=== PATIENT | male | born 2000 | race Caucasian/White ===

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

== ENCOUNTER 2019-06-15 18:51 | Emergency (ER) | payer BC, OTHER ==
--- NOTE | 2019-06-15 19:26 | UC ---
Lower Extremity/Ankle HPI - HPI Summary HPI Summary: 18 yo male presents with RIGHT calf pain. He tells me that 2 days ago he fell asleep at a computer desk with his right lower extremity in a weird position. He woke up several hours later and noticed some numbness/tingling to his entire right leg that improved with moving around and time. Also had some right calf pain that has continued since 2 days ago, but has improved. He played football yesterday and noticed that it felt better with activity. He is concerned about a DVT. Has not taken anything OTC for his discomfort. Denies numbness, tingling. He does not smoke. No hx of blood clots, recent travel, or cancer. - History of Current Complaint Stated Complaint: LEG PAIN Time Seen by Provider: 06/15/19 19:26 Hx Obtained From: Patient Onset/Duration: Sudden Onset Severity Initially: Moderate Severity Currently: Mild Pain Intensity: 2 Pain Scale Used: 0-10 Numeric - Allergies/Home Medications Allergies/Adverse Reactions: Allergies Allergy/AdvReac Type Severity Reaction Status Date / Time No Known Allergies Allergy Verified 06/15/19 19:22 Home Medications: Home Medications Finasteride 0.5 mg PO DAILY WITH MEAL 06/15/19 [History Confirmed 06/15/19] PMH/Surg Hx/FS Hx/Imm Hx - Additional Past Medical History Additional PMH: Hair loss - Surgical History Surgical History: None - Family History Known Family History: Positive: None - Pt denies FMHX - Social History Occupation: Student Lives: Dormitory/Roommates Alcohol Use: None Substance Use Type: None Smoking Status (MU): Never Smoked Tobacco - Immunization History Vaccination Up to Date: Yes Review of Systems All Other Systems Reviewed And Are Negative: No Constitutional: Positive: Negative Skin: Positive: Negative Respiratory: Positive: Negative Cardiovascular: Positive: Negative Neurovascular: Positive: Negative Musculoskeletal: Positive: Other: - Right calf pain Neurological: Positive: Negative Psychological: Positive: Negative Physical Exam - Summary Physical Exam Summary: GENERAL: NAD. WDWN. No pain distress. SKIN: No rashes, sores, lesions, or open wounds. CHEST: No accessory muscle use. Breathing comfortably and in no distress. CV: Pulses intact PT and DP. Cap refill <2seconds. No palpable cord in right calf MSK: RIGHT CALF: Mild TTP about entire calf. NTTP knee or ankle. Negative ryan sign. Soft. No edema. Negative greenberg test. NEURO: Alert. Sensations intact and symmetric B/L LEs PSYCH: Age appropriate behavior. Triage Information Reviewed: Yes Vital Signs: Vital Signs: Temp Pulse Resp BP Pulse Ox 98.6 F 72 16 125/74 99 06/15/19 19:25 06/15/19 19:25 06/15/19 19:25 06/15/19 19:25 06/15/19 19:25 Vital Signs Reviewed: Yes Lower Extremity Course/Dx - Course Course Of Treatment: Well's score for DVT is 0. Discussed with pt that he has no risk factors for DVT and his symptoms are improving. Suspect calf strain. Encouraged to go to the ED if his symptoms do not improve or if he develops calf swelling/redness, shortness of breath, or chest pain. - Differential Dx/Diagnosis Provider Diagnosis: Calf pain Discharge ED - Sign-Out/Discharge Documenting (check all that apply): Patient Departure All imaging exams completed and their final reports reviewed: No Studies - Discharge Plan Condition: Stable Disposition: HOME Patient Education Materials: Muscle Strain (ED) Forms: *School Release Referrals: [facility],[place] [Primary Care Provider] - Additional Instructions: If you develop a fever, shortness of breath, chest pain, new or worsening symptoms - please call your PCP or go to the ED immediately. 1) Rest and elevate your leg as much as possible tomorrow 2) May take ibuprofen as directed for your discomfort - Billing Disposition and Condition Condition: STABLE Disposition: Home - Attestation Statements Provider Attestation: Per institutional requirements, I have reviewed the chart, however, I was not consulted specifically or made aware of this patient by the midlevel provider. I did not personally evaluate, interact with , or disposition this patient.
[2019-06-15 19:39] VITALS: BP 125/74
== END 2019-06-15 20:00 | disposition home or self-care (01) ==
LOC: UCEAST 18:51
DX: M79.661 Pain in right lower leg (principal)
CPT/HCPCS: 99211; G0463